=== PATIENT | male | born 1965 | race Caucasian/White ===

== ENCOUNTER 2017-08-28 18:53 | Inpatient (IN) | payer BC ==
[2017-08-28] MEDS ORDERED: ONDANSETRON 4 MG/2 ML VIAL IVPUSH ONE ×2 (19:02→20:11)
[2017-08-28] MEDS ORDERED: ONDANSETRON 4 MG/2 ML VIAL ONE ×2 (19:02→20:18)
[2017-08-28] MEDS ORDERED: PANTOPRAZOLE SODIUM 40 MG VIAL ONE (19:12)
[2017-08-28 19:15] LABS: BASOPHIL 0.3 % (0-2.0); MCH 31.8 pg (25.7-33.7); MCHC 33.8 g/dl (32.0-35.9); MEAN CELL VOLUME 94.2 fl (80-96); NEUTROPHILS 80.1 % (42.8-82.8); PLATELET COUNT 264 K/MM3 (134-434); RDW 12.8 % (11.9-15.9); WHITE BLOOD COUNT 10.8 K/mm3 (4.0-10.8)
[2017-08-28] MEDS ORDERED: PANTOPRAZOLE SODIUM 40 MG VIAL IVPUSH ONE (19:18)
[2017-08-28 19:27] LABS: ALBUMIN 4.9 g/dl (3.5-5.0); ALK PHOS 90 U/L (32-92); ANION GAP 14 (8-16); BILIRUBIN,TOTAL 2.1 mg/dl (0.2-1.0); CALCIUM 10.3 mg/dl (8.4-10.2); CO2 20 mmol/L (22-28); CREATININE 2.2 mg/dl (0.6-1.3); GLUCOSE,RANDOM 143 mg/dl (74-106); SGOT/AST 100 U/L (10-42); SGPT/ALT 78 U/L (10-40); TOT PROT 8.3 g/dl (6.4-8.3)
--- NOTE | 2017-08-28 19:27 | PDOC ---
History of Present Illness - History of Present Illness Initial Comments: 08/28/17 20:20 Patient is a 52 year old male, with PMHx of HTN, GERD, and anxiety, who presents to the ER with abdominal pain, nausea, and vomiting. He was sent to the ED from Urgent care. 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 He states he was working when he started feeling nauseous, he then states his abdominal pain began to develop. He says his abdominal pain progressively worsens and radiated to his flanks. He is also experienced cramping in his feet. He describe the abdominal pain as pressure- like and states that it feels like muscle spasms. Patient states he has been nauseous and and experiencing abdominal cramping intermittently for the past 6 months but it hasnt been this severe. He states he normally drinks 4-6 beers daily. He reports that he drank less than he normally does because he was busy moving. He last urinated around 10am. Social history: frequent EtOH use (4-6 beers daily). Denies smoking or drug use. Family Hx: brain cancer, stroke, diabetes. <Sisi Fletcher - Last Filed: 08/28/17 20:51> <Kalli Durbin - Last Filed: 08/29/17 06:26> - General Chief Complaint: Chest Pain Stated Complaint: CHEST PAIN, NAUSEA, VOMITING Time Seen by Provider: 08/28/17 19:14 Past History <Sisi Fletcher - Last Filed: 08/28/17 20:51> - Past Medical History COPD: No HTN: Yes - Suicide/Smoking/Psychosocial Hx Smoking History: Never smoked <Kalli Durbin - Last Filed: 08/29/17 06:26> - Past Medical History Allergies/Adverse Reactions: Allergies Allergy/AdvReac Type Severity Reaction Status Date / Time No Known Allergies Allergy Verified 08/28/17 18:53 Home Medications: Ambulatory Orders Amlodipine Besylate 10 mg PO DAILY 08/28/17 Esomeprazole Magnesium [Nexium 24Hr] 20 mg PO DAILY 08/28/17 Losartan/Hydrochlorothiazide [Losartan-Hctz 100-25 mg Tab] 1 each PO DAILY 08/28 Venlafaxine HCl [Effexor -] 150 mg PO DAILY 11/27/17 Review of Systems - Review of Systems Comments:: 08/28/17 20:21 GENERAL/CONSTITUTIONAL: No fever or chills. No weakness. HEAD, EYES, EARS, NOSE AND THROAT: No change in vision. No ear pain or discharge. No sore throat. CARDIOVASCULAR: No chest pain or shortness of breath. RESPIRATORY: No cough, wheezing, or hemoptysis. GASTROINTESTINAL: + nausea, +abdominal cramping. no vomiting, diarrhea or constipation. GENITOURINARY: No dysuria, frequency, or change in urination. MUSCULOSKELETAL: +abdominal and foot cramping. No joint pain. No neck or back pain. SKIN: No rash NEUROLOGIC: No headache, vertigo, loss of consciousness, or change in strength/ sensation. ENDOCRINE: No increased thirst. No abnormal weight change. HEMATOLOGIC/LYMPHATIC: No anemia, easy bleeding, or history of blood clots. ALLERGIC/IMMUNOLOGIC: No hives or skin allergy. <Sisi Fletcher - Last Filed: 08/28/17 20:51> *Physical Exam - Vital Signs Last Vital Signs Temp Pulse Resp BP Pulse Ox 125 H 20 124/87 100 08/28/17 18:53 08/28/17 18:53 08/28/17 18:53 08/28/17 18:53 - Physical Exam Comments: 08/28/17 20:22 GENERAL: Awake, alert, and fully oriented, in no acute distress HEAD: No signs of trauma EYES: PERRLA, EOMI, sclera anicteric, conjunctiva clear ENT: Tongue is tremulous. Auricles normal inspection, hearing grossly normal, nares patent, oropharynx clear without exudates. Dry mucosa NECK: Normal ROM, supple, no lymphadenopathy, JVD, or masses LUNGS: Breath sounds equal, clear to auscultation bilaterally. No wheezes, and no crackles HEART: Regular rate and rhythm, normal S1 and S2, no murmurs, rubs or gallops ABDOMEN: Moderately distended.Soft, nontender, normoactive bowel sounds. No guarding, no rebound. No masses. No palpable organomegaly. EXTREMITIES: Normal range of motion, no edema. No clubbing or cyanosis. No cords, erythema, or tenderness NEUROLOGICAL: Cranial nerves II through XII grossly intact. Normal speech, normal gait SKIN: Warm, Dry, normal turgor, no rashes or lesions noted. <Sisi Fletcher - Last Filed: 08/28/17 20:51> - Vital Signs Last Vital Signs Temp Pulse Resp BP Pulse Ox 125 H 20 124/87 100 08/28/17 18:53 08/28/17 18:53 08/28/17 18:53 08/28/17 18:53 <Kalli Durbin Rosa Elena - Last Filed: 08/29/17 06:26> Heart Score/ECG Review - ECG Intrepretation Comment:: 08/28/17 19:50 ECG Interpretation: Sinus tachycardia Possible left atrial enlargement Vent rate 126 bpm <Sisi Feltcher - Last Filed: 08/28/17 20:51> ED Treatment Course - LABORATORY CBC & Chemistry Diagram: 08/28/17 19:00 08/28/17 19:00 - ADDITIONAL ORDERS Additional order review: Laboratory Results 08/28/17 08/28/17 19:00 19:00 Sodium 131 L Potassium 4.5 Chloride 97 L Carbon Dioxide 20 L Anion Gap 14 BUN 23 H Creatinine 2.2 H Creat Clearance w eGFR 31.84 Random Glucose 143 H Calcium 10.3 H Total Bilirubin 2.1 H AST 100 H ALT 78 H Alkaline Phosphatase 90 Troponin I < 0.03 L Total Protein 8.3 Albumin 4.9 Lipase 62 H 08/28/17 19:00 RBC 4.32 MCV 94.2 MCHC 33.8 RDW 12.8 MPV 8.0 Neutrophils % 80.1 Lymphocytes % 9.4 Monocytes % 10.2 Eosinophils % 0.0 Basophils % 0.3 - Medications Given in the ED: ED Medications Discontinued Medications Generic Name Dose Route Start Last Admin Trade Name Aprli PRN Reason Stop Dose Admin Ondansetron HCl 4 mg 08/28/17 19:02 08/28/17 19:04 Zofran Injection IVPUSH 08/28/17 19:03 4 mg ONCE ONE Administration Pantoprazole Sodium 40 mg 08/28/17 19:18 08/28/17 19:21 Protonix Iv IVPUSH 08/28/17 19:19 40 mg ONCE ONE Administration <Sisi Fletcher - Last Filed: 08/28/17 20:51> - LABORATORY CBC & Chemistry Diagram: 08/28/17 19:00 08/28/17 19:00 - Medications Given in the ED: ED Medications Discontinued Medications Generic Name Dose Route Start Last Admin Trade Name April PRN Reason Stop Dose Admin Ondansetron HCl 4 mg 08/28/17 19:02 08/28/17 19:04 Zofran Injection IVPUSH 08/28/17 19:03 4 mg ONCE ONE Administration <Kalli Durbin - Last Filed: 08/29/17 06:26> Medical Decision Making - Medical Decision Making Documentation has been prepared under my direction and personally reviewed by me in its entirety. I attest that this documented accurately reflects all work, treatment, procedures and medical decision making performed by me. As noted above, this 52-year-old man with a history of hypertension, GERD and daily alcohol use presents with 1 day history of progressive nausea/vomiting, upper abdominal discomfort and intermittent muscle spasms (upper and lower extremities/abdominal wall). The patient states that he is currently moving and has been busy packing today; because of this, his PO intake has been poor. Throughout the afternoon, he began to be more uncomfortable and nauseated. He is also tremulous. Patient admits to 4-6 beers or ounces of hard liquor(whiskey ) nightly. Last night, because of his activities moving he states he drank "less than normal". He denies history of GI bleeding/acute pancreatitis or other alcohol based acute processes. The patient has a record of his laboratory values measured at home within the last calendar year. This consists of electrolytes, glucose, BUN/creatinine, calcium, total bilirubin and transaminase levels. All of these were normal. 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 Portal chest x-ray shows no acute disease 12-lead electrocardiogram is performed and interpreted by me: Sinus tachycardia 127 beats per minute is present; otherwise, intervals/axis and wave forms are all normal without evidence of acute ST or T-wave abnormalities Because patient appeared to be clinically dehydrated, normal saline with multivitamin/folate addition ("banana bag") started ,along with Zofran IV and Protonix 40 mg IV. Because patient is likely having early alcohol withdrawal with tremulousness, Ativan 1 mg IV given. Second dose of Zofran 4 mg IV administered for persistent nausea. Laboratory evaluation notable for elevation of BUN/creatinine (23/2.2). Calcium is elevated at 10.3 as well as total bilirubin at 2.1 (direct bilirubin 0.4). Transaminases are mildly elevated AST 100 with ALT at 78. Lipase is mildly elevated at 62. Troponin is negative. PT slightly elevated at 13.3 Abdominal/pelvic CT performed to evaluate for acute intra-abdominal/intrapelvic process in light of patient's abdominal pain and vomiting. There is evidence of hepatic steatosis/cirrhosis with suggestion of portal hypertension. Although patient feeling more comfortable after some IV hydration, Zofran 8 mg IV and Ativan 1 mg IV, clinical presentation most consistent with mild to moderate alcoholic hepatitis with dehydration. Patient will require continued IV hydration and observation. Case discussed with PAGE Hussein. Patient will be admitted inpatient. <Kalli Durbin - Last Filed: 08/29/17 06:26> *DC/Admit/Observation/Transfer - Attestations Scribe Attestion: 08/28/17 20:23 Documentation prepared by Sisi Fletcher, acting as medical assisting program director for Kalli Durbin MD. <Sisi Fletcher - Last Filed: 08/28/17 20:51> - Discharge Dispostion Admit: Yes <Kalli Durbin - Last Filed: 08/29/17 06:26> Diagnosis at time of Disposition: Dehydration Alcoholic hepatitis Qualifiers: Ascites presence: without ascites Qualified Code(s): K70.10 - Alcoholic hepatitis without ascites - Discharge Dispostion Condition at time of disposition: Stable
[2017-08-28] MEDS ORDERED: SODIUM CHLORIDE 1,000 ML IV STA (20:10)
[2017-08-28] MEDS ORDERED: FOLIC ACID INJECTION - 1 MG, THIAMINE HCL 100 MG, MULTIVIT INJECTION ADULT 10 ML in SOD... IVPB ONE (20:14)
[2017-08-28] MEDS ORDERED: MULTIVIT INJ. ADULT COMBO WITH VIT K 1 COMBO 10 ML VIAL IV ONE (20:18)
[2017-08-28] MEDS ORDERED: FOLIC ACID 5 MG/1 ML ONE (20:21)
[2017-08-28] MEDS ORDERED: LORazepam 2 MG/ML SDV VIAL ONE (20:24)
[2017-08-28] MEDS ORDERED: THIAMINE HCL 200 MG/2 ML VIAL ONE (20:34)
[2017-08-28 21:04] LABS: PH,URINE 5.5 (4.5-8); URINE BILIRUBIN 2+ (NEGATIVE); URINE GLUCOSE (UA) Negative (NEGATIVE); URINE KETONE 1+ (NEGATIVE); URINE LEUK ESTERASE Negative (NEGATIVE); URINE NITRITE Negative (NEGATIVE)
[2017-08-28 21:05] LABS: URINE BLOOD Trace-lysed (NEGATIVE); URINE COLOR DK YELLOW; URINE PROTEIN 2+ (NEGATIVE)
[2017-08-28 21:06] LABS: URINE APPEARANCE CLOUDY
[2017-08-28 21:17] LABS: INR 1.19 (0.82-1.09); PROTHROMBIN TIME (PATIENT) 13.3 SEC (10.2-13.0)
[2017-08-28 21:26] LABS: URINE RBC 0-2 /hpf (0-3); URINE WBC 0-1 (0-2)
[2017-08-28 21:27] LABS: CALCIUM OXALATE CRYSTALS FEW /hpf (NONE SEEN); URIC ACID CRYSTALS FEW /hpf (NONE SEEN); URINE BACTERIA FEW /hpf (NEGATIVE)
--- NOTE | 2017-08-28 22:36 | HP ---
CHIEF COMPLAINT: Epigastric Pain, Vomiting, Cramping to hands/feet PCP: HISTORY OF PRESENT ILLNESS: This is a 52 y/o man with a past medical history of Alcohol Abuse. Who presents to the ED with epigastric pain, bilious vomiting. Patient describes the epigastric pain as cramping which radiates across his abdomen. He also reports having foul smelling angus like stools. Patient reports having cramping to his hands and feet. Patient admits to drinking beer with shots of whiskey 4-6 daily. He reports his last drink was 2 days ago. Patient reports being under a lot of stress with work and also missing his family who are in [place]. Patient denies suicidal or homicidal ideation. Patient denies numbness, slurred speech or facial droop. Patient denies fever, chills, cough, SOB, CP, constipation, dysuria. ER course was notable for: (1) CTAP-Hepatic Steatosis, cirrhotic configuration liver suggestive of portal HTN, splenomegaly, non obstructing 9.8mm left renal calculus, no obstructive uropathy. (2) BUN 23, Cr 2.2 (3) Transaminitis- 3x NL (100/78/90) Recent Travel: None PAST MEDICAL HISTORY: HTN GERD Chronic Alcohol Anxiety PAST SURGICAL HISTORY: Umbilical Hernia Social History: Smoking: Never Alcohol: Heavy Beer/Whiskey 4-6 daily Drugs: Denies Family History: Mother's family- HTN, CVA, Cancer Father's family- Cancer Allergies No Known Allergies Allergy (Verified 08/28/17 18:53) HOME MEDICATIONS: Home Medications Medication Instructions Recorded Amlodipine Besylate 10 mg PO DAILY 08/28/17 Esomeprazole Magnesium [Nexium 20 mg PO DAILY 08/28/17 24Hr] Losartan/Hydrochlorothiazide 1 each PO DAILY 08/28/17 [Losartan-Hctz 100-25 mg Tab] Venlafaxine HCl [Effexor -] 75 mg PO BID 08/28/17 REVIEW OF SYSTEMS CONSTITUTIONAL: Absent: fever, chills, diaphoresis, generalized weakness, malaise, loss of appetite, weight change HEENT: Absent: rhinorrhea, nasal congestion, throat pain, throat swelling, difficulty swallowing, mouth swelling, ear pain, eye pain, visual changes CARDIOVASCULAR: Absent: chest pain, syncope, palpitations, irregular heart rate, lightheadedness , peripheral edema RESPIRATORY: Absent: cough, shortness of breath, dyspnea with exertion, orthopnea, wheezing, stridor, hemoptysis GASTROINTESTINAL: abdominal pain, abdominal distension, nausea, vomiting, angus colored stools Absent: diarrhea, constipation, melena, hematochezia GENITOURINARY: Absent: dysuria, frequency, urgency, hesitancy, hematuria, flank pain, genital pain MUSCULOSKELETAL: Absent: myalgia, arthralgia, joint swelling, back pain, neck pain SKIN: Absent: rash, itching, pallor HEMATOLOGIC/IMMUNOLOGIC: Absent: easy bleeding, easy bruising, lymphadenopathy, frequent infections ENDOCRINE: Absent: unexplained weight gain, unexplained weight loss, heat intolerance, cold intolerance NEUROLOGIC: Absent: headache, focal weakness or paresthesias, dizziness, unsteady gait, seizure, mental status changes, bladder or bowel incontinence PSYCHIATRIC: Absent: anxiety, depression, suicidal or homicidal ideation, hallucinations. PHYSICAL EXAMINATION Vital Signs - 24 hr 08/28/17 08/28/17 08/28/17 18:53 20:02 22:30 Pulse Rate 125 H Pulse Rate [ 110 H 112 H Left Apical] Respiratory 20 18 18 Rate Blood Pressure 124/87 Blood Pressure 120/75 128/72 [Right Arm] O2 Sat by Pulse 100 98 98 Oximetry (%) GENERAL: Anxious, awake, alert, and fully oriented, in no acute distress. HEAD: Normal with no signs of trauma. EYES: Pupils equal, round and reactive to light, extraocular movements intact, sclera anicteric, conjunctiva clear. No lid lag. EARS, NOSE, THROAT: Ears normal, nares patent, oropharynx clear without exudates. Moist mucous membranes. NECK: Normal range of motion, supple without lymphadenopathy, JVD, or masses. LUNGS: Breath sounds equal, clear to auscultation bilaterally. No wheezes, and no crackles. No accessory muscle use. HEART: Regular rate and rhythm, normal S1 and S2 without murmur, rub or gallop. ABDOMEN: Obese, soft, generalized tenderness, distended, hypoactive bowel sounds , hepatomegaly or splenomegaly. No guarding, no rebound, no masses. MUSCULOSKELETAL: Normal range of motion at all joints. No bony deformities or tenderness. No CVA tenderness. UPPER EXTREMITIES: 2+ pulses, warm, well-perfused. No cyanosis. No clubbing. No peripheral edema. LOWER EXTREMITIES: 2+ pulses, warm, well-perfused. No calf tenderness. No peripheral edema. NEUROLOGICAL: Cranial nerves II-XII intact. Normal speech. Normal gait. PSYCHIATRIC: Cooperative. Good eye contact. Appropriate mood and affect. SKIN: Warm, dry, normal turgor, no rashes or lesions noted, normal capillary refill. Laboratory Results - last 24 hr 08/28/17 08/28/17 08/28/17 19:00 19:00 19:00 WBC 10.8 RBC 4.32 Hgb 13.8 Hct 40.7 MCV 94.2 MCH 31.8 MCHC 33.8 RDW 12.8 Plt Count 264 MPV 8.0 Neutrophils % 80.1 Lymphocytes % 9.4 Monocytes % 10.2 Eosinophils % 0.0 Basophils % 0.3 PT with INR INR Sodium 131 L Potassium 4.5 Chloride 97 L Carbon Dioxide 20 L Anion Gap 14 BUN 23 H Creatinine 2.2 H Creat Clearance w eGFR 31.84 Random Glucose 143 H Calcium 10.3 H Magnesium Total Bilirubin 2.1 H Direct Bilirubin AST 100 H ALT 78 H Alkaline Phosphatase 90 Troponin I < 0.03 L Total Protein 8.3 Albumin 4.9 Lipase 62 H Urine Color Urine Appearance Urine pH Ur Specific [place] Urine Protein Urine Glucose (UA) Urine Ketones Urine Blood Urine Nitrite Urine Bilirubin Urine Urobilinogen Ur Leukocyte Esterase Urine RBC Urine WBC Calcium Oxalate Crystal Uric Acid Crystals Urine Bacteria Alcohol, Quantitative 08/28/17 08/28/17 08/28/17 20:00 20:00 20:00 WBC RBC Hgb Hct MCV MCH MCHC RDW Plt Count MPV Neutrophils % Lymphocytes % Monocytes % Eosinophils % Basophils % PT with INR INR Sodium Potassium Chloride Carbon Dioxide Anion Gap BUN Creatinine Creat Clearance w eGFR Random Glucose Calcium Magnesium 1.8 Total Bilirubin Direct Bilirubin 0.4 H AST ALT Alkaline Phosphatase Troponin I Total Protein Albumin Lipase Urine Color Urine Appearance Urine pH Ur Specific [place] Urine Protein Urine Glucose (UA) Urine Ketones Urine Blood Urine Nitrite Urine Bilirubin Urine Urobilinogen Ur Leukocyte Esterase Urine RBC Urine WBC Calcium Oxalate Crystal Uric Acid Crystals Urine Bacteria Alcohol, Quantitative 22.1 08/28/17 08/28/17 20:55 20:55 WBC RBC Hgb Hct MCV MCH MCHC RDW Plt Count MPV Neutrophils % Lymphocytes % Monocytes % Eosinophils % Basophils % PT with INR 13.3 H INR 1.19 Sodium Potassium Chloride Carbon Dioxide Anion Gap BUN Creatinine Creat Clearance w eGFR Random Glucose Calcium Magnesium Total Bilirubin Direct Bilirubin AST ALT Alkaline Phosphatase Troponin I Total Protein Albumin Lipase Urine Color Dk yellow Urine Appearance Cloudy Urine pH 5.5 Ur Specific [place] >= 1.030 H Urine Protein 2+ H Urine Glucose (UA) Negative Urine Ketones 1+ H Urine Blood Trace-lysed H Urine Nitrite Negative Urine Bilirubin 2+ H Urine Urobilinogen 1.0 Ur Leukocyte Esterase Negative Urine RBC 0-2 Urine WBC 0-1 Calcium Oxalate Crystal Few Uric Acid Crystals Few Urine Bacteria Few Alcohol, Quantitative ASSESSMENT/PLAN: This is a 52 y/o man with a PMHx of: Alcohol Abuse, HTN, GERD, Anxiety. Admitted to Telemetry for Alcohol Hepatitis for further evaluation of their emergent condition. FEN - D51/2NS@75ml/hr - Replete lytes prn - NPO- advance ad edward Code Status: Full Code Dispo: Requires Inpatient Care Problem List - Problem (1) Alcoholic hepatitis Assessment/Plan: - Hx-Chronic Alcohol abuse - CTAP- Hepatic Steatosis, Cirrhotic configuration liver suggestive portal HTN, splenomegaly. Non obstructing 9.8mm left renal calculus, no obstructive uropathy. No ureteral urinary bladder, or right renal calculi. - Alcohol Cessation, discussed with patient who is not amendable - Appreciate GI Consult - f/u with a spray gun sizer in outpatient upon d/c - Hepatitis Panel in am - Monitor CBC, BMP - Monitor vitals - Avoid liver toxic drugs Code(s): K70.10 - ALCOHOLIC HEPATITIS WITHOUT ASCITES Qualifiers: Ascites presence: without ascites Qualified Code(s): K70.10 - Alcoholic hepatitis without ascites (2) Epigastric abdominal pain Assessment/Plan: - See above Code(s): R10.13 - EPIGASTRIC PAIN (3) Alcohol withdrawal Assessment/Plan: - CIWA Score 15 - Banana Bag given in ED - Ativan given in ED - Continue Ativan for DTs - Appreciate Detox Consult - Continue IVF - Thiamine, Folic Acid, MVI daily - Alcohol Cessation discussed with patient in detail - Continue tele monitoring - Monitor CBC, BMP - Seizure Precautions Code(s): F10.239 - ALCOHOL DEPENDENCE WITH WITHDRAWAL, UNSPECIFIED (4) Dehydration Assessment/Plan: - Continue IVF - Replete lytes - Monitor vitals Code(s): E86.0 - DEHYDRATION (5) HTN (hypertension) Code(s): I10 - ESSENTIAL (PRIMARY) HYPERTENSION (6) GERD (gastroesophageal reflux disease) Assessment/Plan: -Continue PPI Code(s): K21.9 - GASTRO-ESOPHAGEAL REFLUX DISEASE WITHOUT ESOPHAGITIS (7) Anxiety Assessment/Plan: - Continue Effexor Code(s): F41.9 - ANXIETY DISORDER, UNSPECIFIED (8) DVT prophylaxis Assessment/Plan: - OOB - SCDs - Heparin SQ Code(s): [id number] - Visit type - Emergency Visit Emergency Visit: Yes ED Registration Date: 08/28/17 Care time: The patient presented to the Emergency Department on the above date and was hospitalized for further evaluation of their emergent condition. - New Patient This patient is new to me today: Yes Date on this admission: 08/29/17 - Critical Care Critical Care patient: No
[2017-08-28 23:57] VITALS: BMI 32.3
[2017-08-29 01:06] LABS: URINE MARIJUANA THC NEGATIVE ng/ml (CUTOFF=50)
[2017-08-29] MEDS ORDERED: THIAMINE HCL 100 MG TABLET (FP) PO SCH (03:45)
[2017-08-29] MEDS ORDERED: LORazepam 2 MG/ML SDV VIAL ONE (04:27)
[2017-08-29] MEDS: DEXTROSE 5%-0.45% SALINE 1,000 ML IV SCH (06:52)
--- NOTE | 2017-08-29 08:12 | PN ---
Physical Exam: SUBJECTIVE: Patient seen and examined, reports feeling anxious, denies any abdominal pain, nausea or vomiting. OBJECTIVE: patient is a 52 y/o male with a past medical history of etoh abuse and hypertension, patient was admitted from the emergency department for alcohol induced hepatitis. Vital Signs Period Temp Pulse Resp BP Sys/Byers Pulse Ox Last 24 Hr 98.0 F-98.6 F 103-125 18-20 120-130/66-87 98-100 GENERAL: The patient is awake, alert, and fully oriented, anxious HEAD: Normal with no signs of trauma. EYES: PERRL, extraocular movements intact, sclera anicteric, conjunctiva clear. No ptosis. ENT: Ears normal, nares patent, oropharynx clear without exudates, moist mucous membranes. NECK: Trachea midline, full range of motion, supple. LUNGS: Breath sounds equal, clear to auscultation bilaterally, no wheezes, no crackles, no accessory muscle use. HEART: Regular rate and rhythm, S1, S2 without murmur, rub or gallop. ABDOMEN: Soft, + hepatomegly, obese, nondistended, normoactive bowel sounds, no guarding, no rebound, no masses. EXTREMITIES: 2+ pulses, warm, well-perfused, no edema, bilateral hand tremors NEUROLOGICAL: Cranial nerves II through XII grossly intact. Normal speech, gait not observed. PSYCH: Normal mood, normal affect. SKIN: Warm, dry, normal turgor, no rashes or lesions noted Laboratory Results - last 24 hr 08/28/17 08/28/17 08/28/17 19:00 19:00 19:00 WBC 10.8 RBC 4.32 Hgb 13.8 Hct 40.7 MCV 94.2 MCH 31.8 MCHC 33.8 RDW 12.8 Plt Count 264 MPV 8.0 Neutrophils % 80.1 Lymphocytes % 9.4 Monocytes % 10.2 Eosinophils % 0.0 Basophils % 0.3 PT with INR INR Sodium 131 L Potassium 4.5 Chloride 97 L Carbon Dioxide 20 L Anion Gap 14 BUN 23 H Creatinine 2.2 H Creat Clearance w eGFR 31.84 Random Glucose 143 H Calcium 10.3 H Magnesium Total Bilirubin 2.1 H Direct Bilirubin AST 100 H ALT 78 H Alkaline Phosphatase 90 Troponin I < 0.03 L Total Protein 8.3 Albumin 4.9 Lipase 62 H Urine Color Urine Appearance Urine pH Ur Specific [place] Urine Protein Urine Glucose (UA) Urine Ketones Urine Blood Urine Nitrite Urine Bilirubin Urine Urobilinogen Ur Leukocyte Esterase Urine RBC Urine WBC Calcium Oxalate Crystal Uric Acid Crystals Urine Bacteria Opiates Screen Methadone Screen Barbiturate Screen Phencyclidine Screen Ur Amphetamines Screen MDMA (Ecstasy) Screen Benzodiazepines Screen Cocaine Screen U Marijuana (THC) Screen Alcohol, Quantitative 08/28/17 08/28/17 08/28/17 20:00 20:00 20:00 WBC RBC Hgb Hct MCV MCH MCHC RDW Plt Count MPV Neutrophils % Lymphocytes % Monocytes % Eosinophils % Basophils % PT with INR INR Sodium Potassium Chloride Carbon Dioxide Anion Gap BUN Creatinine Creat Clearance w eGFR Random Glucose Calcium Magnesium 1.8 Total Bilirubin Direct Bilirubin 0.4 H AST ALT Alkaline Phosphatase Troponin I Total Protein Albumin Lipase Urine Color Urine Appearance Urine pH Ur Specific [place] Urine Protein Urine Glucose (UA) Urine Ketones Urine Blood Urine Nitrite Urine Bilirubin Urine Urobilinogen Ur Leukocyte Esterase Urine RBC Urine WBC Calcium Oxalate Crystal Uric Acid Crystals Urine Bacteria Opiates Screen Methadone Screen Barbiturate Screen Phencyclidine Screen Ur Amphetamines Screen MDMA (Ecstasy) Screen Benzodiazepines Screen Cocaine Screen U Marijuana (THC) Screen Alcohol, Quantitative 22.1 08/28/17 08/28/17 08/29/17 20:55 20:55 00:00 WBC RBC Hgb Hct MCV MCH MCHC RDW Plt Count MPV Neutrophils % Lymphocytes % Monocytes % Eosinophils % Basophils % PT with INR 13.3 H INR 1.19 Sodium Potassium Chloride Carbon Dioxide Anion Gap BUN Creatinine Creat Clearance w eGFR Random Glucose Calcium Magnesium Total Bilirubin Direct Bilirubin AST ALT Alkaline Phosphatase Troponin I < 0.02 Total Protein Albumin Lipase Urine Color Dk yellow Urine Appearance Cloudy Urine pH 5.5 Ur Specific [place] >= 1.030 H Urine Protein 2+ H Urine Glucose (UA) Negative Urine Ketones 1+ H Urine Blood Trace-lysed H Urine Nitrite Negative Urine Bilirubin 2+ H Urine Urobilinogen 1.0 Ur Leukocyte Esterase Negative Urine RBC 0-2 Urine WBC 0-1 Calcium Oxalate Crystal Few Uric Acid Crystals Few Urine Bacteria Few Opiates Screen Methadone Screen Barbiturate Screen Phencyclidine Screen Ur Amphetamines Screen MDMA (Ecstasy) Screen Benzodiazepines Screen Cocaine Screen U Marijuana (THC) Screen Alcohol, Quantitative 08/29/17 00:15 WBC RBC Hgb Hct MCV MCH MCHC RDW Plt Count MPV Neutrophils % Lymphocytes % Monocytes % Eosinophils % Basophils % PT with INR INR Sodium Potassium Chloride Carbon Dioxide Anion Gap BUN Creatinine Creat Clearance w eGFR Random Glucose Calcium Magnesium Total Bilirubin Direct Bilirubin AST ALT Alkaline Phosphatase Troponin I Total Protein Albumin Lipase Urine Color Urine Appearance Urine pH Ur Specific [place] Urine Protein Urine Glucose (UA) Urine Ketones Urine Blood Urine Nitrite Urine Bilirubin Urine Urobilinogen Ur Leukocyte Esterase Urine RBC Urine WBC Calcium Oxalate Crystal Uric Acid Crystals Urine Bacteria Opiates Screen Negative Methadone Screen Negative Barbiturate Screen Negative Phencyclidine Screen Negative Ur Amphetamines Screen Negative MDMA (Ecstasy) Screen Negative Benzodiazepines Screen Positive Cocaine Screen Negative U Marijuana (THC) Screen Negative Alcohol, Quantitative Active Medications Generic Name Dose Route Start Last Admin Trade Name Freq PRN Reason Stop Dose Admin Amlodipine Besylate 10 mg 08/29/17 10:00 Norvasc - PO DAILY MARCO Folic Acid 1 mg 08/29/17 10:00 Folic Acid - PO DAILY MARCO Dextrose/Sodium Chloride 1,000 mls @ 75 mls/hr 08/29/17 03:45 08/29/17 06:52 D5-1/2ns - IV 75 mls/hr ASDIR MARCO Administration Famotidine 20 mg/ Dextrose 102 mls @ 204 mls/hr 08/29/17 10:00 IVPB DAILY MARCO Lorazepam 1 mg 08/29/17 03:26 08/29/17 04:00 Ativan Injection - IVPUSH 1 mg Q6H PRN Administration WITHDRAWAL(CONT SUBST) Thiamine HCl 100 mg 08/29/17 10:00 Vitamin B1 - PO DAILY MARCO Venlafaxine HCl 150 mg 08/29/17 10:00 Effexor - PO DAILY MARCO IMAGING CTAP- Hepatic Steatosis, Cirrhotic configuration liver suggestive portal HTN, splenomegaly. Non obstructing 9.8mm left renal calculus, no obstructive uropathy. No ureteral urinary bladder, or right renal calculi. ASSESSMENT/PLAN: 1) GI alcoholic hepatitis - liver enzymes trending downward, close monitoring - GI consult appreciated gerd - continue protonix 2) psych alcohol withdrawl - ciwa-r score of 11, start librium protocol - continuous cardiac monitoring anxiety - continue effexor 3) nephrology maritza - creatine 1.6, unknown baseline, secondary to hypovolemia - continue ivf, repeat bmp in am 4) cardiovascular hypertension -continue norvasc, b/p at goal f/e/n - clear liquid diet ppx -heparin - scd - oob - protonix dispo: requires inpatient telemetry Visit type - Emergency Visit Emergency Visit: Yes ED Registration Date: 08/28/17 Care time: The patient presented to the Emergency Department on the above date and was hospitalized for further evaluation of their emergent condition. - New Patient This patient is new to me today: Yes Date on this admission: 08/29/17 - Critical Care Critical Care patient: No - Discharge Referral Referred to [facility] Med P.C.: No
[2017-08-29 08:37] LABS: ALK PHOS 73 U/L (32-92); ANION GAP 10 (8-16); BILIRUBIN,TOTAL 1.7 mg/dl (0.2-1.0); CALCIUM 9.1 mg/dl (8.4-10.2); CO2 23 mmol/L (22-28); CREATININE 1.6 mg/dl (0.6-1.3); GLUCOSE,RANDOM 91 mg/dl (74-106); SGOT/AST 76 U/L (10-42); SGPT/ALT 59 U/L (10-40); TOT PROT 7.2 g/dl (6.4-8.3)
[2017-08-29 08:38] LABS: BASOPHIL 0.1 % (0-2.0); EOSINOPHIL 0.3 % (0-4.5); MCH 33.3 pg (25.7-33.7); MEAN CELL VOLUME 95.1 fl (80-96); MEAN PLT VOLUME 8.3 fl (7.5-11.1); NEUTROPHILS 51.8 % (42.8-82.8); PLATELET COUNT 103 K/MM3 (134-434); RDW 12.7 % (11.9-15.9); WHITE BLOOD COUNT 3.9 K/mm3 (4.0-10.8)
[2017-08-29] MEDS ORDERED: LORazepam 2 MG/ML SDV VIAL IVPUSH PRN (09:00)
[2017-08-29] MEDS ORDERED: chlordiazePOXIDE HCL 25 MG CAPSULE PO PRN (09:28)
[2017-08-29] MEDS ORDERED: FAMOTIDINE IV 20 MG in DEXTROSE 5%-WATER - 100 ML IVPB SCH (10:00)
[2017-08-29] MEDS ORDERED: VENLAFAXINE HCL 25 MG TABLET PO SCH (10:00)
[2017-08-29] MEDS ORDERED: chlordiazePOXIDE HCL 25 MG CAPSULE PO ONE (10:00)
[2017-08-29] MEDS: VENLAFAXINE HCL 75 MG E.R. CAPSULES (FP) PO SCH (10:09)
[2017-08-29] MEDS: FOLIC ACID 1 MG TABLET (FP) PO SCH (10:10)
[2017-08-29] MEDS: THIAMINE HCL 100 MG TABLET (FP) PO SCH (10:16)
[2017-08-29] MEDS: amLODIPine BESYLATE 10 MG TABLET (FP) PO SCH (10:16)
[2017-08-29] MEDS: chlordiazePOXIDE HCL 25 MG CAPSULE PO SCH ×3 (11:59→22:52)
--- NOTE | 2017-08-29 12:10 | CON.GI ---
Consult Consult Specialty:: GI Referred by:: Hospitalist - History of Present Illness History of Present Illness: 52 yom with history of Alcohol Abuse. Who presents to the ED with epigastric pain, bilious vomiting x 2 days. Patient describes the epigastric pain as cramping, non-radiating. Nausea and vomiting were worse with po intake. No fever , chills, joint, skin symptoms. Denies melena, hematochezia, hematemesis, dysphagia, odynophagia, histroy of gastrointestinal ulcers, GI bleeding. Denies chronic NSAID use. Was drinking hard liquor up until 2 days ago. No known history of liver disease. GI family history only sigtnificant for mother with colon cancer at age 75, in her 80s. The patient is up to date on screening colonoscopy. - History Source History Provided By: Patient, Medical Record - Past Medical History Gastrointestinal: Yes: GERD (takes OTC Nexium PRN) - Alcohol/Substance Use Hx Alcohol Use: Yes - Smoking History Smoking history: Never smoked Have you smoked in the past 12 months: No Home Medications - Allergies Allergies/Adverse Reactions: Allergies Allergy/AdvReac Type Severity Reaction Status Date / Time No Known Allergies Allergy Verified 08/28/17 18:53 - Home Medications Home Medications: Ambulatory Orders Amlodipine Besylate 10 mg PO DAILY 08/28/17 Esomeprazole Magnesium [Nexium 24Hr] 20 mg PO DAILY 08/28/17 Losartan/Hydrochlorothiazide [Losartan-Hctz 100-25 mg Tab] 1 each PO DAILY 08/28 Venlafaxine HCl [Effexor -] 150 mg PO DAILY 08/28/17 Family Disease History - Family Disease History Family Disease History: CA: Mother (colon @ 75 yo) Review of Systems Findings/Remarks: Please refer to H&P Physical Exam-GI Vital Signs: Vital Signs Temperature 98.0 F 08/29/17 03:23 Pulse Rate 103 H 08/29/17 03:23 Respiratory Rate 20 08/29/17 03:23 Blood Pressure 124/73 08/29/17 03:23 O2 Sat by Pulse Oximetry (%) 100 08/29/17 03:23 Constitutional: Yes: Well Nourished, No Distress, Calm Eyes: Yes: Conjunctiva Clear HENT: Yes: Atraumatic Neck: Yes: Supple Cardiovascular: Yes: Regular Rate and Rhythm Respiratory: Yes: Regular ...Auscultate: Yes: Normoactive Bowel Sounds ...Palpate: Yes: Soft. No: Firm/Rigid, Guarding, Tenderness, Tenderness, Epigastium, Tenderness, Rebound Neurological: Yes: Alert, Oriented Labs: CBC, BMP 08/29/17 07:00 08/29/17 07:00 INR, PTT INR 1.19 (0.82-1.09) 08/28/17 20:55 Laboratory Results - last 24 hr 08/28/17 08/28/17 08/28/17 19:00 19:00 19:00 WBC 10.8 RBC 4.32 Hgb 13.8 Hct 40.7 MCV 94.2 MCH 31.8 MCHC 33.8 RDW 12.8 Plt Count 264 MPV 8.0 Neutrophils % 80.1 Lymphocytes % 9.4 Monocytes % 10.2 Eosinophils % 0.0 Basophils % 0.3 PT with INR INR Sodium 131 L Potassium 4.5 Chloride 97 L Carbon Dioxide 20 L Anion Gap 14 BUN 23 H Creatinine 2.2 H Creat Clearance w eGFR 31.84 Random Glucose 143 H Calcium 10.3 H Magnesium Total Bilirubin 2.1 H Direct Bilirubin AST 100 H ALT 78 H Alkaline Phosphatase 90 Troponin I < 0.03 L Total Protein 8.3 Albumin 4.9 Lipase 62 H Urine Color Urine Appearance Urine pH Ur Specific [place] Urine Protein Urine Glucose (UA) Urine Ketones Urine Blood Urine Nitrite Urine Bilirubin Urine Urobilinogen Ur Leukocyte Esterase Urine RBC Urine WBC Calcium Oxalate Crystal Uric Acid Crystals Urine Bacteria Opiates Screen Methadone Screen Barbiturate Screen Phencyclidine Screen Ur Amphetamines Screen MDMA (Ecstasy) Screen Benzodiazepines Screen Cocaine Screen U Marijuana (THC) Screen Alcohol, Quantitative 08/28/17 08/28/17 08/28/17 20:00 20:00 20:00 WBC RBC Hgb Hct MCV MCH MCHC RDW Plt Count MPV Neutrophils % Lymphocytes % Monocytes % Eosinophils % Basophils % PT with INR INR Sodium Potassium Chloride Carbon Dioxide Anion Gap BUN Creatinine Creat Clearance w eGFR Random Glucose Calcium Magnesium 1.8 Total Bilirubin Direct Bilirubin 0.4 H AST ALT Alkaline Phosphatase Troponin I Total Protein Albumin Lipase Urine Color Urine Appearance Urine pH Ur Specific [place] Urine Protein Urine Glucose (UA) Urine Ketones Urine Blood Urine Nitrite Urine Bilirubin Urine Urobilinogen Ur Leukocyte Esterase Urine RBC Urine WBC Calcium Oxalate Crystal Uric Acid Crystals Urine Bacteria Opiates Screen Methadone Screen Barbiturate Screen Phencyclidine Screen Ur Amphetamines Screen MDMA (Ecstasy) Screen Benzodiazepines Screen Cocaine Screen U Marijuana (THC) Screen Alcohol, Quantitative 22.1 08/28/17 08/28/17 08/29/17 20:55 20:55 00:00 WBC RBC Hgb Hct MCV MCH MCHC RDW Plt Count MPV Neutrophils % Lymphocytes % Monocytes % Eosinophils % Basophils % PT with INR 13.3 H INR 1.19 Sodium Potassium Chloride Carbon Dioxide Anion Gap BUN Creatinine Creat Clearance w eGFR Random Glucose Calcium Magnesium Total Bilirubin Direct Bilirubin AST ALT Alkaline Phosphatase Troponin I < 0.02 Total Protein Albumin Lipase Urine Color Dk yellow Urine Appearance Cloudy Urine pH 5.5 Ur Specific [place] >= 1.030 H Urine Protein 2+ H Urine Glucose (UA) Negative Urine Ketones 1+ H Urine Blood Trace-lysed H Urine Nitrite Negative Urine Bilirubin 2+ H Urine Urobilinogen 1.0 Ur Leukocyte Esterase Negative Urine RBC 0-2 Urine WBC 0-1 Calcium Oxalate Crystal Few Uric Acid Crystals Few Urine Bacteria Few Opiates Screen Methadone Screen Barbiturate Screen Phencyclidine Screen Ur Amphetamines Screen MDMA (Ecstasy) Screen Benzodiazepines Screen Cocaine Screen U Marijuana (THC) Screen Alcohol, Quantitative 08/29/17 08/29/17 08/29/17 00:15 07:00 07:00 WBC 3.9 L D RBC 3.70 L Hgb 12.3 D Hct 35.2 L MCV 95.1 MCH 33.3 MCHC 35.0 RDW 12.7 Plt Count 103 L D MPV 8.3 Neutrophils % 51.8 D Lymphocytes % 30.1 D Monocytes % 17.7 H Eosinophils % 0.3 D Basophils % 0.1 PT with INR INR Sodium 134 L Potassium 4.1 Chloride 101 Carbon Dioxide 23 Anion Gap 10 BUN 24 H Creatinine 1.6 H D Creat Clearance w eGFR 45.98 Random Glucose 91 D Calcium 9.1 Magnesium Total Bilirubin 1.7 H Direct Bilirubin AST 76 H D ALT 59 H D Alkaline Phosphatase 73 Troponin I Total Protein 7.2 Albumin 4.0 Lipase Urine Color Urine Appearance Urine pH Ur Specific [place] Urine Protein Urine Glucose (UA) Urine Ketones Urine Blood Urine Nitrite Urine Bilirubin Urine Urobilinogen Ur Leukocyte Esterase Urine RBC Urine WBC Calcium Oxalate Crystal Uric Acid Crystals Urine Bacteria Opiates Screen Negative Methadone Screen Negative Barbiturate Screen Negative Phencyclidine Screen Negative Ur Amphetamines Screen Negative MDMA (Ecstasy) Screen Negative Benzodiazepines Screen Positive Cocaine Screen Negative U Marijuana (THC) Screen Negative Alcohol, Quantitative 08/29/17 07:00 WBC RBC Hgb Hct MCV MCH MCHC RDW Plt Count MPV Neutrophils % Lymphocytes % Monocytes % Eosinophils % Basophils % PT with INR INR Sodium Potassium Chloride Carbon Dioxide Anion Gap BUN Creatinine Creat Clearance w eGFR Random Glucose Calcium Magnesium Total Bilirubin Direct Bilirubin AST ALT Alkaline Phosphatase Troponin I < 0.03 L Total Protein Albumin Lipase Urine Color Urine Appearance Urine pH Ur Specific [place] Urine Protein Urine Glucose (UA) Urine Ketones Urine Blood Urine Nitrite Urine Bilirubin Urine Urobilinogen Ur Leukocyte Esterase Urine RBC Urine WBC Calcium Oxalate Crystal Uric Acid Crystals Urine Bacteria Opiates Screen Methadone Screen Barbiturate Screen Phencyclidine Screen Ur Amphetamines Screen MDMA (Ecstasy) Screen Benzodiazepines Screen Cocaine Screen U Marijuana (THC) Screen Alcohol, Quantitative Laboratory Results - last 24 hr 08/28/17 08/28/17 08/28/17 19:00 19:00 19:00 WBC 10.8 RBC 4.32 Hgb 13.8 Hct 40.7 MCV 94.2 MCH 31.8 MCHC 33.8 RDW 12.8 Plt Count 264 MPV 8.0 Neutrophils % 80.1 Lymphocytes % 9.4 Monocytes % 10.2 Eosinophils % 0.0 Basophils % 0.3 PT with INR INR Sodium 131 L Potassium 4.5 Chloride 97 L Carbon Dioxide 20 L Anion Gap 14 BUN 23 H Creatinine 2.2 H Creat Clearance w eGFR 31.84 Random Glucose 143 H Calcium 10.3 H Magnesium Total Bilirubin 2.1 H Direct Bilirubin AST 100 H ALT 78 H Alkaline Phosphatase 90 Troponin I < 0.03 L Total Protein 8.3 Albumin 4.9 Lipase 62 H Urine Color Urine Appearance Urine pH Ur Specific [place] Urine Protein Urine Glucose (UA) Urine Ketones Urine Blood Urine Nitrite Urine Bilirubin Urine Urobilinogen Ur Leukocyte Esterase Urine RBC Urine WBC Calcium Oxalate Crystal Uric Acid Crystals Urine Bacteria Opiates Screen Methadone Screen Barbiturate Screen Phencyclidine Screen Ur Amphetamines Screen MDMA (Ecstasy) Screen Benzodiazepines Screen Cocaine Screen U Marijuana (THC) Screen Alcohol, Quantitative 08/28/17 08/28/17 08/28/17 20:00 20:00 20:00 WBC RBC Hgb Hct MCV MCH MCHC RDW Plt Count MPV Neutrophils % Lymphocytes % Monocytes % Eosinophils % Basophils % PT with INR INR Sodium Potassium Chloride Carbon Dioxide Anion Gap BUN Creatinine Creat Clearance w eGFR Random Glucose Calcium Magnesium 1.8 Total Bilirubin Direct Bilirubin 0.4 H AST ALT Alkaline Phosphatase Troponin I Total Protein Albumin Lipase Urine Color Urine Appearance Urine pH Ur Specific [place] Urine Protein Urine Glucose (UA) Urine Ketones Urine Blood Urine Nitrite Urine Bilirubin Urine Urobilinogen Ur Leukocyte Esterase Urine RBC Urine WBC Calcium Oxalate Crystal Uric Acid Crystals Urine Bacteria Opiates Screen Methadone Screen Barbiturate Screen Phencyclidine Screen Ur Amphetamines Screen MDMA (Ecstasy) Screen Benzodiazepines Screen Cocaine Screen U Marijuana (THC) Screen Alcohol, Quantitative 22.1 08/28/17 08/28/17 08/29/17 20:55 20:55 00:00 WBC RBC Hgb Hct MCV MCH MCHC RDW Plt Count MPV Neutrophils % Lymphocytes % Monocytes % Eosinophils % Basophils % PT with INR 13.3 H INR 1.19 Sodium Potassium Chloride Carbon Dioxide Anion Gap BUN Creatinine Creat Clearance w eGFR Random Glucose Calcium Magnesium Total Bilirubin Direct Bilirubin AST ALT Alkaline Phosphatase Troponin I < 0.02 Total Protein Albumin Lipase Urine Color Dk yellow Urine Appearance Cloudy Urine pH 5.5 Ur Specific [place] >= 1.030 H Urine Protein 2+ H Urine Glucose (UA) Negative Urine Ketones 1+ H Urine Blood Trace-lysed H Urine Nitrite Negative Urine Bilirubin 2+ H Urine Urobilinogen 1.0 Ur Leukocyte Esterase Negative Urine RBC 0-2 Urine WBC 0-1 Calcium Oxalate Crystal Few Uric Acid Crystals Few Urine Bacteria Few Opiates Screen Methadone Screen Barbiturate Screen Phencyclidine Screen Ur Amphetamines Screen MDMA (Ecstasy) Screen Benzodiazepines Screen Cocaine Screen U Marijuana (THC) Screen Alcohol, Quantitative 08/29/17 08/29/17 08/29/17 00:15 07:00 07:00 WBC 3.9 L D RBC 3.70 L Hgb 12.3 D Hct 35.2 L MCV 95.1 MCH 33.3 MCHC 35.0 RDW 12.7 Plt Count 103 L D MPV 8.3 Neutrophils % 51.8 D Lymphocytes % 30.1 D Monocytes % 17.7 H Eosinophils % 0.3 D Basophils % 0.1 PT with INR INR Sodium 134 L Potassium 4.1 Chloride 101 Carbon Dioxide 23 Anion Gap 10 BUN 24 H Creatinine 1.6 H D Creat Clearance w eGFR 45.98 Random Glucose 91 D Calcium 9.1 Magnesium Total Bilirubin 1.7 H Direct Bilirubin AST 76 H D ALT 59 H D Alkaline Phosphatase 73 Troponin I Total Protein 7.2 Albumin 4.0 Lipase Urine Color Urine Appearance Urine pH Ur Specific [place] Urine Protein Urine Glucose (UA) Urine Ketones Urine Blood Urine Nitrite Urine Bilirubin Urine Urobilinogen Ur Leukocyte Esterase Urine RBC Urine WBC Calcium Oxalate Crystal Uric Acid Crystals Urine Bacteria Opiates Screen Negative Methadone Screen Negative Barbiturate Screen Negative Phencyclidine Screen Negative Ur Amphetamines Screen Negative MDMA (Ecstasy) Screen Negative Benzodiazepines Screen Positive Cocaine Screen Negative U Marijuana (THC) Screen Negative Alcohol, Quantitative 08/29/17 07:00 WBC RBC Hgb Hct MCV MCH MCHC RDW Plt Count MPV Neutrophils % Lymphocytes % Monocytes % Eosinophils % Basophils % PT with INR INR Sodium Potassium Chloride Carbon Dioxide Anion Gap BUN Creatinine Creat Clearance w eGFR Random Glucose Calcium Magnesium Total Bilirubin Direct Bilirubin AST ALT Alkaline Phosphatase Troponin I < 0.03 L Total Protein Albumin Lipase Urine Color Urine Appearance Urine pH Ur Specific [place] Urine Protein Urine Glucose (UA) Urine Ketones Urine Blood Urine Nitrite Urine Bilirubin Urine Urobilinogen Ur Leukocyte Esterase Urine RBC Urine WBC Calcium Oxalate Crystal Uric Acid Crystals Urine Bacteria Opiates Screen Methadone Screen Barbiturate Screen Phencyclidine Screen Ur Amphetamines Screen MDMA (Ecstasy) Screen Benzodiazepines Screen Cocaine Screen U Marijuana (THC) Screen Alcohol, Quantitative Imaging - Results Chest X-ray: Report Reviewed Cat Scan: Report Reviewed (nodular liver, paraesophageal varices, collateral circulation, splenomegaly) Problem List - Problems (1) Alcohol abuse Code(s): F10.10 - ALCOHOL ABUSE, UNCOMPLICATED (2) Alcoholic liver disease Code(s): K70.9 - ALCOHOLIC LIVER DISEASE, UNSPECIFIED (3) Hepatic cirrhosis Code(s): K74.60 - UNSPECIFIED CIRRHOSIS OF LIVER (4) Portal hypertension with esophageal varices Code(s): K76.6 - PORTAL HYPERTENSION; I85.00 - ESOPHAGEAL VARICES WITHOUT BLEEDING (5) PHT (portal hypertension) Code(s): K76.6 - PORTAL HYPERTENSION (6) Hyponatremia Code(s): E87.1 - HYPO-OSMOLALITY AND HYPONATREMIA (7) Renal insufficiency Code(s): N28.9 - DISORDER OF KIDNEY AND URETER, UNSPECIFIED Assessment/Plan A 52 yom with ongoing alcohol abuse admitted with nausea, vomiting and abdominal pain, which have resolved at the time of this encounter. The patinet also found to have mild hyponatremia and renal insufficiency. RI improved to some degree with hydration. Cannot exclude underlying hepato-renal syndrome in setting of possible liver cirrhosis as described by the CT Normal WBC, no fever, or jaundice. Do not suspect alcoholic hepatitis. Do not suspect biliary disease, or pancreatitis Agree with gentle hydration while monitoring urine output, BUN, Cr Agree with H2RB, OK to change to PO Agree with viral hepatitis screen Agree with alcohol withdrawal protocol Monitor electrolytes 2 gm salt diet The patient will need an EGD for esophageal varices evaluation as well as liver cirrhosis work up to exclude other than ETOH etiologies. This can be done on outpatient bases. Follow with GI in 1-2 weeks after discharge OK to d/c home if tolerating diet and am labs acceptable.
[2017-08-30] MEDS: DEXTROSE 5%-0.45% SALINE 1,000 ML IV SCH (04:18)
[2017-08-30] MEDS: chlordiazePOXIDE HCL 25 MG CAPSULE PO SCH (05:13)
[2017-08-30 06:30] VITALS: BP 131/79; PULSE 88; TEMP 99
[2017-08-30 08:46] LABS: ALBUMIN 3.8 g/dl (3.5-5.0); ALK PHOS 73 U/L (32-92); ANION GAP 7 (8-16); BILIRUBIN,TOTAL 1.7 mg/dl (0.2-1.0); CALCIUM 8.8 mg/dl (8.4-10.2); CO2 26 mmol/L (22-28); CREATININE 1.1 mg/dl (0.6-1.3); GLUCOSE,RANDOM 101 mg/dl (74-106); MAGNESIUM 1.6 mg/dL (1.8-2.4); PHOSPHOROUS 2.8 mg/dl (2.5-4.6); SGOT/AST 103 U/L (10-42); SGPT/ALT 74 U/L (10-40)
[2017-08-30 09:07] LABS: BASOPHIL 0.1 % (0-2.0); EOSINOPHIL 0.2 % (0-4.5); MCH 32.3 pg (25.7-33.7); MCHC 33.8 g/dl (32.0-35.9); MEAN CELL VOLUME 95.4 fl (80-96); MEAN PLT VOLUME 8.2 fl (7.5-11.1); NEUTROPHILS 46.1 % (42.8-82.8); PLATELET COUNT 113 K/MM3 (134-434); RDW 12.3 % (11.9-15.9)
[2017-08-30] MEDS: VENLAFAXINE HCL 75 MG E.R. CAPSULES (FP) PO SCH (09:11)
[2017-08-30] MEDS: FOLIC ACID 1 MG TABLET (FP) PO SCH (09:12)
[2017-08-30] MEDS: THIAMINE HCL 100 MG TABLET (FP) PO SCH (09:12)
[2017-08-30] MEDS: amLODIPine BESYLATE 10 MG TABLET (FP) PO SCH (09:12)
[2017-08-30] MEDS ORDERED: MAGNESIUM SULFATE 2 GM in SODIUM CHLORIDE 100 ML IVPB ONE (09:29)
[2017-08-30] MEDS ORDERED: D5-NS + 20 MEQ KCL - 20 MEQ/1,000 ML INFUS.BAG IV SCH (09:30)
--- NOTE | 2017-08-30 09:34 | DS ---
Physical Exam: SUBJECTIVE: Patient seen and examined, reports feeling better, tolerating regular diet, denies abdominal pain, nausea or vomiting. OBJECTIVE: patient is a 52 y/o man with a past medical history of Alcohol Abuse. Who presents to the ED with epigastric pain, bilious vomiting. Patient describes the epigastric pain as cramping which radiates across his abdomen. He also reports having foul smelling angus like stools. Patient reports having cramping to his hands and feet. Patient admits to drinking beer with shots of whiskey 4-6 daily. He reports his last drink was 2 days ago. Patient reports being under a lot of stress with work and also missing his family who are in [place]. Patient denies suicidal or homicidal ideation. Patient denies numbness, slurred speech or facial droop. Patient denies fever, chills, cough, SOB, CP, constipation, dysuria. ER course was notable for: (1) CTAP-Hepatic Steatosis, cirrhotic configuration liver suggestive of portal HTN, splenomegaly, non obstructing 9.8mm left renal calculus, no obstructive uropathy. (2) BUN 23, Cr 2.2 (3) Transaminitis- 3x NL (100/78/90) Vital Signs Period Temp Pulse Resp BP Sys/Byers Pulse Ox Last 24 Hr 98.5 F-99.0 F 88-98 18-19 114-131/58-79 98-100 PHYSICAL EXAM GENERAL: The patient is awake, alert, and fully oriented, anxious HEAD: Normal with no signs of trauma. EYES: PERRL, extraocular movements intact, sclera anicteric, conjunctiva clear. No ptosis. ENT: Ears normal, nares patent, oropharynx clear without exudates, moist mucous membranes. NECK: Trachea midline, full range of motion, supple. LUNGS: Breath sounds equal, clear to auscultation bilaterally, no wheezes, no crackles, no accessory muscle use. HEART: Regular rate and rhythm, S1, S2 without murmur, rub or gallop. ABDOMEN: Soft, + hepatomegly, obese, nondistended, normoactive bowel sounds, no guarding, no rebound, no masses. EXTREMITIES: 2+ pulses, warm, well-perfused, no edema, bilateral hand tremors NEUROLOGICAL: Cranial nerves II through XII grossly intact. Normal speech, gait not observed. PSYCH: Normal mood, normal affect. SKIN: Warm, dry, normal turgor, no rashes or lesions noted LABS Laboratory Results - last 24 hr 08/29/17 08/30/17 08/30/17 06:00 07:00 07:30 WBC 3.0 L RBC 3.76 L Hgb 12.1 Hct 35.8 MCV 95.4 MCH 32.3 MCHC 33.8 RDW 12.3 Plt Count 113 L MPV 8.2 Neutrophils % 46.1 Lymphocytes % 36.3 D Monocytes % 17.3 H Eosinophils % 0.2 Basophils % 0.1 Sodium 131 L Potassium 3.6 Chloride 98 Carbon Dioxide 26 Anion Gap 7 L BUN 15 D Creatinine 1.1 D Creat Clearance w eGFR > 60 Random Glucose 101 Calcium 8.8 Phosphorus 2.8 Magnesium 1.6 L Total Bilirubin 1.7 H AST 103 H D ALT 74 H D Alkaline Phosphatase 73 Total Protein 7.0 Albumin 3.8 Hepatitis A IgM Ab Negative Hep Bs Antigen Negative Hep B Core IgM Ab Negative Hepatitis C Ab (EIA) 0.2 IMAGING CTAP- Hepatic Steatosis, Cirrhotic configuration liver suggestive portal HTN, splenomegaly. Non obstructing 9.8mm left renal calculus, no obstructive uropathy. No ureteral urinary bladder, or right renal calculi. HOSPITAL COURSE: Patient is a 52 y/o male that was admitted from the emergency department for alcoholic hepatitis. GI, Dr Barrera consulted during this admission, advised outpatient follow up for EGD and colonscopy. patient was started on protonix for GERD. In addition, patient was started on librium protocol, ciwa-r score of 11 , started librium protocol, patient was placed on continuous cardiac monitoring, no telemetry events was noted. Patient has a past medical history of anxiety and home dose effexor was continued. BARAK was noted upon admisssion secondary to hypovolemia which resolved with IVF. Blood pressure remained at goal with norvasc. PLAN - follow up with GI Dr Barrera within 1 week - d/c hctz, due to hyponatremia, continue loosartan and norvasc, follow up with pcp within 1 week for repeat bmp Date of Admission:08/28/17 Date of Discharge: 08/30/17 Minutes to complete discharge: 45 Discharge Summary Reason For Visit: CHEST PAIN, NAUSEA, VOMITING Current Active Problems Alcohol abuse (Acute) Alcohol withdrawal (Acute) Alcoholic hepatitis (Acute) Alcoholic liver disease (Acute) Anxiety (Acute) DVT prophylaxis (Acute) Dehydration (Acute) Epigastric abdominal pain (Acute) GERD (gastroesophageal reflux disease) (Acute) HTN (hypertension) (Acute) Hepatic cirrhosis (Acute) Hyponatremia (Acute) PHT (portal hypertension) (Acute) Portal hypertension with esophageal varices (Acute) Renal insufficiency (Acute) Condition: Improved - Instructions Diet, Activity, Other Instructions: resume medications as prescribed discontinue your loosartan/hctz because your sodium levels was noted to be low during this admission, continue taking loosartan as prescribed continue protonix daily please follow up with Dr Barrera GI within 1 week please follow up with your pcp within 1 week for repeat lab work if any new or persistent symptoms develop please return to the emergency department. Referrals: Anil Barrera MD [Staff Physician] - 1 Week Hillary Duran MD [Staff Physician] - Disposition: HOME - Home Medications Comprehensive Discharge Medication List: Ambulatory Orders Amlodipine Besylate 10 mg PO DAILY 08/28/17 Esomeprazole Magnesium [Nexium 24Hr] 20 mg PO DAILY 08/28/17 Losartan/Hydrochlorothiazide [Losartan-Hctz 100-25 mg Tab] 1 each PO DAILY 08/28 Venlafaxine HCl [Effexor -] 150 mg PO DAILY 08/28/17 This patient is new to me today: No Emergency Visit: Yes ED Registration Date: 08/28/17 Care time: The patient presented to the Emergency Department on the above date and was hospitalized for further evaluation of their emergent condition. Critical Care patient: No - Discharge Referral Referred to [facility] No
[2017-08-30] MEDS ORDERED: MAGNESIUM SULF 50% (8.12 MEQ/2 ML-1 GM VIAL) IVPB ONE (10:00)
[2017-08-30] MEDS ORDERED: PANTOPRAZOLE 40 MG TABLET (FP) PO SCH (10:00)
[2017-08-30] MEDS ORDERED: POTASSIUM CHLORIDE TABS 20 MEQ TABLET.ER (FP) PO ONE (10:45)
[2017-08-30] MEDS ORDERED: chlordiazePOXIDE HCL 25 MG CAPSULE PO SCH (11:00)
--- NOTE | 2017-08-30 14:02 | EKG ---
Test Reason : Blood Pressure : / mmHG Vent. Rate : 126 BPM Atrial Rate : 126 BPM P-R Int : 122 ms QRS Dur : 084 ms QT Int : 316 ms P-R-T Axes : 067 054 046 degrees QTc Int : 457 ms SINUS TACHYCARDIA POSSIBLE LEFT ATRIAL ENLARGEMENT BORDERLINE ECG NO PREVIOUS ECGS AVAILABLE Confirmed by LANDON DAVIS MD ([id number] on 08/30/2017 2:02:24 PM Referred By: GRACIELA Confirmed By:LANDON DAVIS MD
[2017-08-31] MEDS ORDERED: chlordiazePOXIDE 5 MG CAPSULE PO SCH (11:00)
== END 2017-08-30 13:02 | disposition home or self-care (01) | DRG 433 ==
LOC: FER 18:53 → FM/S 22:40
PROVIDERS: ADMIT Internal Medicine; ATTEND Nurse Practitioner Family
DX: K70.10 Alcoholic hepatitis without ascites (principal); K76.6 Portal hypertension; F10.239 Alcohol dependence with withdrawal, unspecified; N17.9 Acute kidney failure, unspecified; E87.1 Hypo-osmolality and hyponatremia; N20.0 Calculus of kidney; R16.1 Splenomegaly, not elsewhere classified; E86.0 Dehydration; I10 Essential (primary) hypertension; K21.9 Gastro-esophageal reflux disease without esophagitis; F41.8 Other specified anxiety disorders; N28.9 Disorder of kidney and ureter, unspecified
CPT/HCPCS: 36415; 71010-TC; 74176-TC; 80053; 80074; 80307; 81003; 81015; 82248; 83690; 83735; 84100; 84484; 85025; 85610; 93005; 99285-25